=== PATIENT | female | born 1985 | race Caucasian/White ===

== ENCOUNTER 2018-02-12 23:46 | Inpatient (IN) | payer BC ==
[~2018-02-12] VITALS: Ht 172.7 cm; Wt 136.8 kg
[2018-02-13] MEDS ORDERED: SODIUM CHLORIDE 0.9% 1,000ML IVBOLUS ONE (00:30)
[2018-02-13 00:41] LABS: MEAN CORPUSCULAR HEMOGLOBIN 30.4 pg (27.0-34.8); MEAN CORPUSCULAR HGB CONC 34.7 g/dL (32.4-35.8); MEAN CORPUSCULAR VOLUME 87.6 fL (80-100); MEAN PLATELET VOLUME 7.6 fL (7.4-10.4); PLATELET COUNT 202 x10^3/uL (130-400); RED BLOOD COUNT 4.37 x10^6/uL (3.82-5.3)
[2018-02-13 00:54] LABS: ALANINE AMINOTRANSFERASE 26 U/L (12-78); ALBUMIN 3.1 g/dL (3.4-5.0); ANION GAP 12 mmol/L (5-15); CALCIUM 8.3 mg/dL (8.5-10.1); CHLORIDE 107 mmol/L (98-107); CREATININE 0.86 mg/dL (0.55-1.02)
[2018-02-13 00:56] LABS: ALKALINE PHOSPHATASE 54 U/L (45-117); TOTAL PROTEIN 7.5 g/dL (6.4-8.2)
[2018-02-13 00:57] LABS: RAPID INFLUENZA A Negative (Negative); RAPID INFLUENZA B Negative (Negative)
[2018-02-13 01:00] LABS: AMPHETAMINE SCREEN, URINE Negative (Negative); BARBITURATE SCREEN, URINE Negative (Negative); BENZODIAZEPINE SCREEN, URINE Negative (Negative); CANNABINOID SCREEN, URINE Negative (Negative); COCAINE SCREEN, URINE Negative (Negative); METHADONE SCREEN, URINE Negative (Negative); OPIATE SCREEN, URINE Negative (Negative)
[2018-02-13 01:08] LABS: MD YES
[2018-02-13 01:10] LABS: BAND#(MANUAL) 1.28 x10^3/uL; BANDS%(MANUAL) 5 % (0-7); LYMPH#(MANUAL) 0.77 x10^3/uL (1-3.4); LYMPHS% (MANUAL) 3 % (22-44); MONOS#(MANUAL) 0.77 x10^3/uL (0.3-2.7); MONOS% (MANUAL) 3 % (2-9); SEG#(MANUAL) 22.78 x10^3/uL (1.8-6.8); SEGS% (MANUAL) 89 % (42-75)
[2018-02-13 01:11] LABS: <PLATELET ESTIMATE> ADEQUATE; <PLT MORPHOLOGY> NORMAL PLT MORPH; <RBC MORPHOLOGY> NORMAL
[2018-02-13 01:12] LABS: SALICYLATE LEVEL 1.9 mg/dL (2.8-20.0)
[2018-02-13 01:25] LABS: ACETAMINOPHEN < 2 mcg/mL (10-30)
[2018-02-13] MEDS ORDERED: SODIUM CHLORIDE 0.9% 1,000 ML IV ONE (01:52)
[2018-02-13 03:06] VITALS: BP 101/60
[2018-02-13] MEDS ORDERED: IBUPROFEN 600 MG TABLET PO PRN (05:00)
[2018-02-13] MEDS ORDERED: VANCOMYCIN PER PHARMACY MC PRN (05:00)
[2018-02-13] MEDS ORDERED: POLYETHYLENE GLYCOL 17 GM PACKET PO PRN (05:00)
[2018-02-13] MEDS ORDERED: ONDANSETRON 2MG/ML, 2ML IVPush PRN (05:00)
[2018-02-13] MEDS ORDERED: ONDANSETRON ODT 4 MG PO PRN (05:00)
[2018-02-13] MEDS ORDERED: PHARMACOKINETIC CONSULTATION MC ONE (05:30)
[2018-02-13] MEDS ORDERED: PHARMACOKINETIC MONITORING MC PRN (05:30)
[2018-02-13] MEDS: SODIUM CHLORIDE 0.9% 1,000 ML IV SCH ×2 (05:33→15:49)
[2018-02-13] MEDS: CEFTRIAXONE 2 GM in SODIUM CHLORIDE 0.9% 50 ML IV SCH ×2 (06:11→17:57)
[2018-02-13] MEDS: VANCOMYCIN 2,000 MG in SODIUM CHLORIDE 0.9% 500 ML IV SCH ×2 (06:12→19:12)
[2018-02-13 08:00] VITALS: BP 119/76
[2018-02-13] MEDS ORDERED: ROPivacaine/PF 0.2%, 10 ML ONE (09:15)
[2018-02-13] MEDS ORDERED: LIDOCAINE-MPF 2%, 2ML ONE (09:58)
[2018-02-13 11:55] VITALS: BP 101/68
[2018-02-13] MEDS ORDERED: ACETAMINOPHEN 650 MG SUPP PR PRN (12:00)
[2018-02-13 12:28] LABS: GLUCOSE, CSF 15 mg/dL (40-80)
[2018-02-13 12:29] LABS: TOTAL PROTEIN,CSF 262 mg/dL (15-45)
[2018-02-13 12:55] VITALS: BP 118/69
[2018-02-13] MEDS: SODIUM CHLORIDE 0.9% IV SCH ×2 (15:50→23:54)
[2018-02-13] MEDS: ACYCLOVIR IV SCH ×2 (15:50→23:54)
[2018-02-13 15:56] VITALS: BP 108/77
[2018-02-13] MEDS: HEPARIN 5,000 UNITS/ML, 1ML SQ SCH (17:56)
[2018-02-13] MEDS: ACETAMINOPHEN 325 MG TABLET PO PRN (18:14)
[2018-02-13 20:00] VITALS: BP 116/74
[2018-02-13] MEDS: FAMOTIDINE 20 MG TABLET PO SCH (20:41)
[2018-02-14] MEDS: HEPARIN 5,000 UNITS/ML, 1ML SQ SCH ×3 (00:30→18:42)
[2018-02-14 00:37] VITALS: BP 124/80
[2018-02-14] MEDS: ACETAMINOPHEN 325 MG TABLET PO PRN (02:02)
[2018-02-14] MEDS: CEFTRIAXONE 2 GM in SODIUM CHLORIDE 0.9% 50 ML IV SCH ×2 (05:44→18:42)
[2018-02-14 06:30] LABS: BASOPHILS # (AUTO) 0.03 x10^3/uL (0-0.1); BASOPHILS % (AUTO) 0 % (0-1); EOSINOPHILS % (AUTO) 0 % (1-7); LYMPHOCYTES # (AUTO) 1.96 x10^3/uL (1-3.4); LYMPHOCYTES % (AUTO) 14 % (22-44); MD NO; MEAN CORPUSCULAR HEMOGLOBIN 30.8 pg (27.0-34.8); MEAN CORPUSCULAR HGB CONC 34.7 g/dL (32.4-35.8); MEAN CORPUSCULAR VOLUME 88.6 fL (80-100); MEAN PLATELET VOLUME 7.9 fL (7.4-10.4); MONOCYTES # (AUTO) 0.75 x10^3/uL (0.2-0.8); MONOCYTES % (AUTO) 5 % (2-9); NEUTROPHILS # (AUTO) 11.39 x10^3/uL (1.8-6.8); NEUTROPHILS % (AUTO) 81 % (42-75); PLATELET COUNT 174 x10^3/uL (130-400); RED BLOOD COUNT 3.87 x10^6/uL (3.82-5.3)
[2018-02-14 06:32] LABS: ALANINE AMINOTRANSFERASE 24 U/L (12-78); ALBUMIN 2.7 g/dL (3.4-5.0); ANION GAP 10 mmol/L (5-15); CHLORIDE 113 mmol/L (98-107); CREATININE 0.66 mg/dL (0.55-1.02)
[2018-02-14 06:33] LABS: HCT (SEDRATE) 34.3 % (34.6-47.8)
[2018-02-14 06:35] LABS: ALKALINE PHOSPHATASE 50 U/L (45-117); BILIRUBIN,TOTAL 0.5 mg/dL (0.2-1.0); TOTAL PROTEIN 7.2 g/dL (6.4-8.2); VANCOMYCIN,TROUGH 6.9 mcg/mL (5.0-10.0)
[2018-02-14] MEDS: VANCOMYCIN 2,000 MG in SODIUM CHLORIDE 0.9% 500 ML IV SCH (06:44)
[2018-02-14 07:06] VITALS: BP 119/77
[2018-02-14] MEDS: SODIUM CHLORIDE 0.9% IV SCH (08:33)
[2018-02-14] MEDS: FAMOTIDINE 20 MG TABLET PO SCH ×2 (08:33→20:16)
[2018-02-14] MEDS: ACYCLOVIR IV SCH (08:33)
[2018-02-14] MEDS: SODIUM CHLORIDE 0.9% 1,000 ML IV SCH ×2 (09:00→20:16)
[2018-02-14] MEDS ORDERED: VANCOMYCIN 2,000 MG in SODIUM CHLORIDE 0.9% 500 ML IV SCH (14:00)
[2018-02-14 14:03] VITALS: BP 106/69
[2018-02-14 19:19] VITALS: BP 117/76
[2018-02-15] MEDS: HEPARIN 5,000 UNITS/ML, 1ML SQ SCH ×3 (00:24→16:30)
[2018-02-15 01:11] VITALS: BP 125/79
[2018-02-15] MEDS: SODIUM CHLORIDE 0.9% 1,000 ML IV SCH (04:30)
[2018-02-15] MEDS: CEFTRIAXONE 2 GM in SODIUM CHLORIDE 0.9% 50 ML IV SCH ×2 (05:54→17:23)
[2018-02-15 06:07] LABS: ANION GAP 9 mmol/L (5-15); CALCIUM 8.1 mg/dL (8.5-10.1); CHLORIDE 113 mmol/L (98-107)
[2018-02-15 06:08] LABS: CREATININE 0.69 mg/dL (0.55-1.02)
[2018-02-15 06:44] LABS: BASOPHILS # (AUTO) 0.06 x10^3/uL (0-0.1); BASOPHILS % (AUTO) 1 % (0-1); EOSINOPHILS # (AUTO) 0.05 x10^3/uL (0-0.4); EOSINOPHILS % (AUTO) 0 % (1-7); LYMPHOCYTES # (AUTO) 2.87 x10^3/uL (1-3.4); LYMPHOCYTES % (AUTO) 27 % (22-44); MD SCAN; MEAN CORPUSCULAR HEMOGLOBIN 30.3 pg (27.0-34.8); MEAN CORPUSCULAR HGB CONC 33.5 g/dL (32.4-35.8); MEAN CORPUSCULAR VOLUME 90.3 fL (80-100); MONOCYTES # (AUTO) 0.69 x10^3/uL (0.2-0.8); MONOCYTES % (AUTO) 6 % (2-9); NEUTROPHILS # (AUTO) 7.06 x10^3/uL (1.8-6.8); NEUTROPHILS % (AUTO) 66 % (42-75); PLATELET COUNT 133 x10^3/uL (130-400); RED BLOOD COUNT 4.09 x10^6/uL (3.82-5.3); RED CELL DISTRIBUTION WIDTH 14.2 % (9.6-15.2)
[2018-02-15 08:04] VITALS: BP 103/69
[2018-02-15] MEDS: FAMOTIDINE 20 MG TABLET PO SCH ×2 (08:33→20:27)
[2018-02-15] MEDS: ACETAMINOPHEN 325 MG TABLET PO PRN ×2 (08:33→17:23)
[2018-02-15 15:08] VITALS: BP 107/74
[2018-02-15 19:55] VITALS: BP 122/83
[2018-02-16] MEDS: HEPARIN 5,000 UNITS/ML, 1ML SQ SCH ×3 (00:29→17:41)
[2018-02-16 01:40] VITALS: BP 111/73
[2018-02-16] MEDS: CEFTRIAXONE 2 GM in SODIUM CHLORIDE 0.9% 50 ML IV SCH (06:05)
[2018-02-16 06:09] LABS: ANION GAP 10 mmol/L (5-15); CALCIUM 8.7 mg/dL (8.5-10.1); CHLORIDE 111 mmol/L (98-107)
[2018-02-16 06:13] LABS: BASOPHILS # (AUTO) 0.03 x10^3/uL (0-0.1); BASOPHILS % (AUTO) 0 % (0-1); EOSINOPHILS % (AUTO) 1 % (1-7); LYMPHOCYTES # (AUTO) 2.15 x10^3/uL (1-3.4); LYMPHOCYTES % (AUTO) 26 % (22-44); MD NO; MEAN CORPUSCULAR HEMOGLOBIN 30.2 pg (27.0-34.8); MEAN CORPUSCULAR HGB CONC 34.4 g/dL (32.4-35.8); MEAN CORPUSCULAR VOLUME 87.6 fL (80-100); MEAN PLATELET VOLUME 8.4 fL (7.4-10.4); MONOCYTES # (AUTO) 0.39 x10^3/uL (0.2-0.8); MONOCYTES % (AUTO) 5 % (2-9); NEUTROPHILS # (AUTO) 5.61 x10^3/uL (1.8-6.8); NEUTROPHILS % (AUTO) 68 % (42-75); PLATELET COUNT 202 x10^3/uL (130-400); RED BLOOD COUNT 4.13 x10^6/uL (3.82-5.3); RED CELL DISTRIBUTION WIDTH 13.7 % (9.6-15.2)
[2018-02-16 07:27] VITALS: BP 113/81
[2018-02-16] MEDS: FAMOTIDINE 20 MG TABLET PO SCH (09:07)
[2018-02-16 13:29] VITALS: BP 114/78
[2018-02-16] MEDS ORDERED: ACET325T14 PO (16:52)
[2018-02-16] MEDS ORDERED: CEFT2FRO2 IV (16:52)
== END 2018-02-16 17:55 | disposition home or self-care (01) | DRG 95 ==
LOC: ED 02-13 00:42 → EDIP 02-13 01:52 → 4WST 02-13 02:44
PROVIDERS: ADMIT Hospitalist; ATTEND Hospitalist
PROC: 009U3ZX Drainage of Spinal Canal, Percutaneous Approach, Diagnostic (ICD-10-PCS; principal; 2018-02-13)
PROC: B01B1ZZ Fluoroscopy of Spinal Cord using Low Osmolar Contrast (ICD-10-PCS; 2018-02-13)
DX: G00.9 Bacterial meningitis, unspecified (principal); Z68.42 Body mass index [BMI] 45.0-49.9, adult; E66.01 Morbid (severe) obesity due to excess calories; J32.9 Chronic sinusitis, unspecified
CPT/HCPCS: 36415; 62270; 70450; 80048; 80053; 80202; 80307; 80329; 82140; 82945; 83735; 84100; 84145; 84157; 84443; 85025; 85651; 86063; 87040; 87070; 87205; 87252; 87400; 87529; 88108; 89051; 99291; G0378; J0133; J0696; J1644; J2795; J3370; J3490; G0480; J7030; J7040; J7050